=== PATIENT | female | born 1985 | race Caucasian/White ===

== ENCOUNTER 2016-08-15 16:41 | Emergency (ER) | payer SELFPAY ==
[2016-08-15 16:50] VITALS: BMI 36.2
[2016-08-15 16:52] VITALS: BP 132/84; PULSE 147; TEMP 99.1
== END 2016-08-15 17:30 | disposition left against medical advice (07) ==
LOC: ED 16:41 → EDMC 17:30
DX: M79.642 Pain in left hand (principal); M25.532 Pain in left wrist; Z53.21 Procedure and treatment not carried out due to patient leaving prior to being seen by health care provider
CPT/HCPCS: 99281